=== PATIENT | female | born 1970 | race Caucasian/White ===

== ENCOUNTER → 2019-01-16 | Outpatient (CLI) | payer BC ==
--- NOTE | 2019-01-16 11:54 | Diagnostic Imaging Report ---
CLINICAL INDICATION: Patient with neck pain. No known injury. EXAM: X-ray of the cervical spine, three views. COMPARISON: None. FINDINGS: There is no acute cervical spine fracture or dislocation. There is [id number]-[id number] hypertrophic anterior spurs at the C4 through C7 levels which is worse at the C6-C7 level. There is mild loss of intervertebral disc height at the C6-C7 level. There is no prevertebral soft tissue swelling. Odontoid views are unremarkable. Patient is edentulous. IMPRESSION: [id number] cervical spine degenerative disease with no acute fracture or dislocation. Dictated by: Dictated on workstation # [id number]
== END ==
LOC: RAD FS 11:10
PROVIDERS: ATTEND Family Medicine
DX: M47.812 Spondylosis without myelopathy or radiculopathy, cervical region (principal)
CPT/HCPCS: 72040

== ENCOUNTER → 2019-01-31 | Outpatient (CLI) | payer BC ==
--- NOTE | 2019-01-31 14:28 | Diagnostic Imaging Report ---
PROCEDURE: MR imaging cervical spine without contrast. TECHNIQUE: Multiplanar, multisequence MR imaging of the cervical spine was performed without contrast. INDICATION: Neck pain as well as left shoulder pain and arm numbness and tingling. COMPARISON: No prior MRI studies are available. Comparison is made with cervical spine radiograph from 01/16/2019. FINDINGS: Curvature and alignment of the cervical spine is normal. Vertebral body marrow signal is normal. No geographic marrow lesion is seen. There is some mild degenerative disc disease C5-6 and C6-7 levels with mild disc space narrowing and desiccation. Cervical cord demonstrates normal homogeneous signal intensity and normal morphology. Craniocervical junction is unremarkable. C2-3: Central canal and neural foramina are widely patent. C3-4: Central canal and neural foramina are widely patent. C4-5: Central canal and neural foramina appear widely patent. C5-6: There is left-sided uncovertebral joint degenerative change resulting in moderate left neural foraminal narrowing. Right neural foramen and central canal are widely patent. C6-7: Prominent uncovertebral joint degenerative change does result in moderate bilateral neural foraminal stenosis, left greater. Central canal is patent. C7-T1: Unremarkable. IMPRESSION: C5-6 and C6-7 degenerative disc disease with neural foraminal stenosis, as described. No central canal stenosis is identified. Dictated by: Dictated on workstation # [id number]
== END ==
LOC: RAD 13:16
PROVIDERS: ATTEND Family Medicine
DX: M50.322 Other cervical disc degeneration at C5-C6 level (principal); M48.02 Spinal stenosis, cervical region
CPT/HCPCS: 72141

== ENCOUNTER → 2022-04-02 | Outpatient (CLI) | payer BC ==
[~2022-04-02] MED LIST: RT-ALBUTEROL SULF 2.5 MG/3 ML PRE-MIX VIAL INH ONE
== END ==
LOC: RT 14:55
PROVIDERS: ATTEND Registered Nurse Emergency
DX: R06.09 Other forms of dyspnea (principal)
CPT/HCPCS: 94060; 94726; 94729